=== PATIENT | female | born 1955 | race Caucasian/White ===

== ENCOUNTER 2019-02-06 09:20 | Outpatient (CLI) | payer OTHER ==
--- NOTE | 2019-02-06 10:05 | XRAY Report ---
Reason: PNEUMONIA Procedure Date: 02/06/2019 Accession Number: [id number] / [id number] Procedure: XRN - Chest 2 View X-Ray CPT Code: 60841 FULL RESULT: EXAM: CHEST RADIOGRAPHY EXAM DATE: 02/06/2019 09:42 AM. CLINICAL HISTORY: PNEUMONIA. Sick for 10 days. COMPARISON: None. TECHNIQUE: 2 views. FINDINGS: Lungs/Pleura: No focal opacities evident. No pleural effusion. No pneumothorax. Mild hyperinflation. Mediastinum: Heart and mediastinal contours are unremarkable. Other: None. IMPRESSION: 1. No definite acute abnormality. 2. Mild hyperinflation. RADIA
== END 2019-02-06 09:21 | disposition home or self-care (01) ==
LOC: DI.N 09:20
PROVIDERS: ATTEND Specialist
DX: J18.9 Pneumonia, unspecified organism (principal)
CPT/HCPCS: 71046

== ENCOUNTER 2020-01-02 14:42 | Outpatient (CLI) | payer OTHER | END 2020-01-02 14:43 | disposition home or self-care (01) | LOC: RT 14:42 | PROVIDERS: ATTEND Orthopaedic Surgery Foot and Ankle Surgery | DX: Z01.810 Encounter for preprocedural cardiovascular examination (principal) | CPT/HCPCS: 93005 ==

== ENCOUNTER 2022-07-19 10:44 | Outpatient (CLI) | payer OTHER | END 2022-07-19 10:45 | disposition home or self-care (01) | LOC: LAB.N 10:44 | DX: K56.699 Other intestinal obstruction unspecified as to partial versus complete obstruction (principal); Z20.822 Contact with and (suspected) exposure to COVID-19 ==

== ENCOUNTER 2024-06-05 08:00 | Outpatient (CLI) | payer OTHER | END 2024-06-05 23:59 | disposition home or self-care (01) | LOC: LAB.WCP 08:00 | PROVIDERS: ATTEND Physician Assistant | DX: R30.0 Dysuria (principal) | CPT/HCPCS: 87077; 87086 ==